=== PATIENT | female | born 1990 | race Caucasian/White ===

== ENCOUNTER 2016-10-16 00:24 | Inpatient (IN) | payer MEDICAID ==
[~2016-10-16] VITALS: Ht 147.3 cm; Wt 55.5 kg
[2016-10-16 00:30] VITALS: BP 111/58; PULSE 76; RESP 18
[2016-10-16] MEDS ORDERED: AMPICILLIN 2 GM/NS (PMX) 100 ML ONE (00:44)
[2016-10-16] MEDS ORDERED: LACTATED RINGER'S 1,000 ML IV SCH (00:48)
[2016-10-16] MEDS ORDERED: OXYTOCIN 30 UNITS/LR 500 ML IV SCH ×3 (01:00→01:45)
[2016-10-16] MEDS ORDERED: LIDOCAINE 1% (MPF) 30 ML INJ INJ PRN (01:00)
[2016-10-16] MEDS ORDERED: BUTORPHANOL 2 MG INJ IV PRN (01:00)
[2016-10-16] MEDS ORDERED: CARBOPROST 250 MCG INJ IM PRN ×2 (01:00→02:00)
[2016-10-16] MEDS ORDERED: AMPICILLIN 2 GM/NS (PMX) 100 ML IV ONE (01:00)
[2016-10-16] MEDS ORDERED: METHYLERGONOVINE 0.2 MG INJ IM PRN ×2 (01:00→02:00)
[2016-10-16] MEDS ORDERED: IBUPROFEN 600 MG TAB PO PRN (01:00)
[2016-10-16] MEDS ORDERED: OXYTOCIN 30 UNITS/LR 500 ML IV PRN ×2 (01:00→02:00)
[2016-10-16] MEDS ORDERED: LACTATED RINGER'S 1,000 ML IV PRN (01:00)
[2016-10-16] MEDS ORDERED: MISOPROSTOL 200 MCG TAB PR PRN ×2 (01:00→02:00)
--- NOTE | 2016-10-16 01:14 | HP ---
Date/Time of Note Date/Time of Note DATE: 10/16/16 TIME: 01:10 OB - History Hx of Present Chief Complaint: LOF : 4 Para: 3 Care: Good Care Obstetrical Complications: None Medical Complications: None Past Family/Social History * Past Medical, Surgical, Family and Obstetric Histories reviewed from chart. GBS Status: Positive OB Admission Exam Physical Exam HEENT: WNL Heart: Rhythm Normal Abdomen: WNL Extremities: Normal Cervical Dilatation: 4cm Effacement: 75% Station: -2 Membranes: Ruptured Heart Rate: 130's Accelerations: Accelerations Present Decelerations: No Decelerations Varibility: Moderate OB Assessment/Plan Reason for admission: active labor, group B positive strep, rupture of membranes Plan: Expectant Management Other plan: Admit to L&D. Ampicillin for GBS prophylaxis. Pitocin, epidural prn. RUTH WOMACK Oct 16, 2016 1:14 am
[2016-10-16 01:21] LABS: ADD SCAN DIFF NO
[2016-10-16 01:24] LABS: BASOPHILS % 0.2 % (0.0-2.0); EOSINOPHILS # 0.1 10^3/ul (0.0-0.5); EOSINOPHILS % 0.5 % (0.0-7.0); HEMATOCRIT 30.8 % (37.0-47.0); HEMOGLOBIN 10.9 g/dl (12.0-16.0); LYMPHOCYTES # 3.1 10^3/ul (0.8-2.9); LYMPHOCYTES % 32.5 % (15.0-51.0); MEAN CORPUSCULAR HGB CONC 35.4 g/dl (32.0-37.0); MEAN CORPUSCULAR VOLUME 87.5 fl (82.0-101.0); MEAN PLATELET VOLUME 10.2 fl (7.4-10.4); MONOCYTE # 0.5 10^3/ul (0.3-0.9); MONOCYTES % 5.2 % (0.0-11.0); NEUTROPHIL # 5.8 10^3/ul (1.6-7.5); PLATELET COUNT 216 10^3/UL (140-415); RED BLOOD COUNT 3.52 10^6/ul (4.20-5.40); RED CELL DISTRIBUTION WIDTH 12.3 % (11.5-14.5); WHITE BLOOD COUNT 9.5 10^3/ul (4.8-10.8)
[2016-10-16] MEDS ORDERED: LACTATED RINGER'S 1,000 ML IV* SCH (01:45)
--- NOTE | 2016-10-16 01:45 | LDN ---
Date/Time of Note Date/Time of Note DATE: 10/16/16 TIME: 01:43 Delivery Summary Placenta Delivered: Spontaneously Meconium: none Episiotomy: No Perineal laceration: 0 Anesthesia type: None Estimated blood loss: 200 Sponge & Needle done & correct: Yes All needle counts correct: Yes Any foreign bodies felt in the: No Problems: Infant Delivery Information Sex Infant Sex: female Apgars 1 Minute: 9 5 Minute: 9 Suctioning Nose & mouth suctioned at kapil: Yes Umbilical Cord Cord presentations: no nuchal cord Mother & Baby Disposition Disposition Mom & Baby to Maternity; Good: Yes RUTH WOMACK Oct 16, 2016 01:45
[2016-10-16 01:46] LABS: INR 0.88; PARTIAL THROMBOPLASTIN TIME 22.2 Sec (25.0-35.0); PROTIME 11.9 Sec (12.2-14.2); PT RATIO 0.9
[2016-10-16] MEDS ORDERED: WITCH HAZEL/GLYCERIN PAD PR PRN (02:00)
[2016-10-16] MEDS ORDERED: DIBUCAINE 1% 30 GM OINT PR PRN (02:00)
[2016-10-16] MEDS ORDERED: BENZOCAINE 20% 56 ML SPRAY TOP PRN (02:00)
[2016-10-16] MEDS ORDERED: ACETAMINOPHEN/CODEINE #3 TAB PO PRN ×2 (02:00)
[2016-10-16] MEDS ORDERED: LANOLIN 7 GM TUBE TOP PRN (02:00)
--- NOTE | 2016-10-16 03:16 | TRIAGE ---
OB Triage Datetime Report Generated by CPN: 10/16/2016 03:16 Datetime: 10/16/2016 01:52 Pain Assessment Pain Scale: 7 Pain Presence: Constant Pain Type: Cramping; Ache Pain Location: Abdomen; Back; Perineum Pain Goal: 0 Pain Relief Measures: Pain Medication Given; Comfort Measures Datetime: 10/16/2016 01:49 Stage of : Recovery Pain Assessment Pain Scale: 7 Pain Presence: Constant Pain Type: Cramping; Ache Pain Location: Abdomen; Back; Perineum Pain Goal: 0 Pain Relief Measures: Comfort Measures Datetime: 10/16/2016 01:37 Stage of : Recovery Temperature Route: Oral Pain Assessment Pain Scale: 10 Pain Presence: Constant Pain Type: Cramping; Ache Pain Location: Abdomen; Back; Perineum Pain Goal: 0 Pain Relief Measures: Comfort Measures Datetime: 10/16/2016 01:27 Vaginal Exam Dilatation (cms): 10.0 Datetime: 10/16/2016 01:20 Vaginal Exam Dilatation (cms): 9.5 Effacement (%): 100 Station: 0 Exam By: MG Datetime: 10/16/2016 01:15 Vaginal Exam Dilatation (cms): 9.0 Effacement (%): 90 Station: -1 Exam By: MG Datetime: 10/16/2016 01:13 Membrane Status: Ruptured Membranes Rupture Method: Spontaneous Amniotic Fluid Color: Clear Amniotic Fluid Amount: Moderate Datetime: 10/16/2016 01:12 Membrane Status: Intact Datetime: 10/16/2016 00:53 Pain Assessment Pain Scale: 9 Pain Presence: Intermittent Pain Type: Contraction; Pressure Pain Location: Abdomen Pain Goal: 0 Pain Relief Measures: Comfort Measures Pain Assessment Comments: Pt requests epidural Datetime: 10/16/2016 00:35 Time of Arrival: 10/16/2016 00:30 EGA: 38.6 Arrived By: Wheelchair Arrived From: Home Movement: Present Contractions: Irregular Time Contractions Began: 10/15/2016 22:00 Rupture of Membranes: Denies Vaginal Bleeding: None Vaginal Discharge: Denies Recent Sexual Intercouse: Denies Abdominal Trauma: Not Applicable Patient Complaints: Contractions Time Provider Notified: 10/16/2016 00:50 Provider Notified: Dr. 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 Datetime: 10/16/2016 00:30 Stage of : OB Triage Assessment Type: Triage Maternal Assessment Level of Consciousness: Fully Conscious DTR's/Clonus: DTRs 2+; No Clonus Headache: Denies Blurred Vision: No Respiratory Effort: Unlabored; Regular Rhythm; Equal Expansion Breath Sounds, Left: Clear and Equal Breath Sounds, Right: Clear and Equal Nausea/Vomiting: Denies RUQ Epigastric Pain: Denies Facial Edema: None Temperature Route: Axillary Fall Risk Assessment History of Falling: (0) No Secondary Diagnosis: (0) No Ambulatory Aid: (0) Bedrest/Nurse Assist IV Therapy: (0) No Gait: (0) Normal/Bedrest/Immobile Mental Status: (0) Oriented to Own Ability Fall Score: 0 Fall Risk Score Definition: No Risk: No action required Datetime: 10/16/2016 00:28 Membranes Ruptured Date/Time: 10/16/2016 01:13 Amniotic Fluid Odor: None Presentation 'A': Cephalic
[2016-10-16 03:40] VITALS: BP 117/59; PULSE 57; RESP 17
[2016-10-16 04:00] VITALS: BP 102/42; PULSE 58; RESP 17
[2016-10-16] MEDS: IBUPROFEN 600 MG TAB PO SCH ×3 (06:00→17:59)
[2016-10-16 08:00] VITALS: BP 98/42; PULSE 61; RESP 18
[2016-10-16] MEDS: AMPICILLIN 1 GM/NS (PMX) 50 ML IV SCH (09:00)
--- NOTE | 2016-10-16 09:52 | PN ---
Date/Time of Note Date/Time of Note DATE: 10/16/16 TIME: 09:50 OB Subjective Subjective Subjective Status post normal spontaneous vaginal delivery Patient is doing well and has no complaints OB Objective HEENT: WNL Heart: Rhythm Normal Lungs: Clear Abdomen: WNL (Uterus firm) OB Assessment/Plan Other Assessment: Status post Other plan: Continue with present management VIVI FREGOSO MD Oct 16, 2016 09:51
[2016-10-16 16:00] VITALS: BP 88/46; PULSE 59; RESP 18
[2016-10-16 20:00] VITALS: BP 103/55; PULSE 68; RESP 18
[2016-10-17] MEDS: IBUPROFEN 600 MG TAB PO SCH ×4 (01:20→17:21)
[2016-10-17 04:00] VITALS: BP 98/56; PULSE 61; RESP 18
[2016-10-17 08:00] VITALS: BP 89/57; PULSE 62; RESP 18
[2016-10-17 08:38] LABS: ADD SCAN DIFF NO
[2016-10-17 08:42] LABS: BASOPHILS % 0.1 % (0.0-2.0); EOSINOPHILS # 0.1 10^3/ul (0.0-0.5); EOSINOPHILS % 1.4 % (0.0-7.0); HEMATOCRIT 31.2 % (37.0-47.0); HEMOGLOBIN 10.6 g/dl (12.0-16.0); LYMPHOCYTES # 2.5 10^3/ul (0.8-2.9); LYMPHOCYTES % 29.2 % (15.0-51.0); MEAN CORPUSCULAR HEMOGLOBIN 30.2 pg (29.0-33.0); MEAN CORPUSCULAR VOLUME 88.9 fl (82.0-101.0); MEAN PLATELET VOLUME 10.3 fl (7.4-10.4); MONOCYTE # 0.3 10^3/ul (0.3-0.9); NEUTROPHIL # 5.5 10^3/ul (1.6-7.5); NEUTROPHILS % 64.9 % (39.0-77.0); PLATELET COUNT 210 10^3/UL (140-415); RED BLOOD COUNT 3.51 10^6/ul (4.20-5.40); RED CELL DISTRIBUTION WIDTH 12.7 % (11.5-14.5); WHITE BLOOD COUNT 8.5 10^3/ul (4.8-10.8)
--- NOTE | 2016-10-17 14:23 | DS ---
Date/Time of Note Date/Time of Note DATE: 10/17/16 TIME: 14:22 Obstetrical Discharge Record Final Diagnosis Final Diagnosis: Term delivered Vaginal Delivery Obstetrical Delivery: Spontaneous Complications Augmentation: No Induction: No Rupture of Membranes: No Condition on Discharge Physical Assessment Voiding: Yes Bowel Movement: Yes Breast: Soft, non-tender, Filling Fundus: Firm Abdomen and Incision: soft, not tender Calf Tenderness: No Patient Condition: Good ZANDRA OROPEZA MD Oct 17, 2016 14:23
[2016-10-18] MEDS ORDERED: MEASLES,MUMPS,RUBELLA VACCINE INJ SC* ONE (09:00)
[2016-10-18] MEDS ORDERED: VARICELLA VACCINE LIVE/PF 1,350 UNIT/0.5 ML ML SC* ONE (09:00)
[2016-10-18] MEDS ORDERED: DIPHTH/TET/ACEL PERTUSS (ADULT) 0.5 ML VIAL IM* ONE (09:00)
== END 2016-10-17 19:30 | disposition home or self-care (01) | DRG 775 ==
LOC: OBT 00:24 → L-D 00:25 → OBT 00:29 → L-D 00:30 → PP1 03:45
PROVIDERS: ADMIT Specialist; ATTEND Specialist
PROC: 10E0XZZ Delivery of Products of Conception, External Approach (ICD-10-PCS; principal; 2016-10-16)
PROC: 3E0234Z Introduction of Serum, Toxoid and Vaccine into Muscle, Percutaneous Approach (ICD-10-PCS; 2016-10-17)
DX: O99.824 Streptococcus B carrier state complicating childbirth (principal); Z3A.38 38 weeks gestation of pregnancy; Z23 Encounter for immunization; Z37.0 Single live birth
CPT/HCPCS: 85025; 85610; 85730; 86592; 86900; 86901; 87340; G0463; J0290; J2590; J7120

== ENCOUNTER 2017-04-11 05:37 | Day surgery (SDC) | payer MEDICAID ==
[2017-04-08 10:54] VITALS: BMI 24.9
[2017-04-11] VITALS (12 sets, daily range): BP systolic 95–112; BP diastolic 50–65; PULSE 62–90; RESP 12–21; Ht 147.3 cm; Wt 54.0 kg
[~2017-04-11] VITALS: Ht 147.3 cm; Wt 54.0 kg
[~2017-04-11 05:37] MED LIST: BUPIVACAINE 0.5%/EPI (SDV) 30 ML INJ INJ ONE
[2017-04-11] MEDS ORDERED: BUPIVACAINE 0.5%/EPI (SDV) 30 ML INJ ONE (07:06)
[2017-04-11] MEDS ORDERED: ROCURONIUM 50 MG INJ ONE (07:18)
[2017-04-11] MEDS ORDERED: PROPOFOL 20 ML ONE (07:18)
[2017-04-11] MEDS ORDERED: METOCLOPRAMIDE 10 MG INJ ONE (07:19)
[2017-04-11] MEDS ORDERED: MIDAZOLAM 1 MG/ML 2 ML INJ ONE (07:19)
[2017-04-11] MEDS ORDERED: ROPIVACAINE 0.5 % 30 ML VIAL ONE (07:19)
[2017-04-11] MEDS ORDERED: KETOROLAC 30 MG INJ ONE (07:19)
--- NOTE | 2017-04-11 07:28 | HP ---
Date/Time of Note Date/Time of Note DATE: 04/11/17 TIME: 07:26 Assessment/Plan VTE Prophylaxis VTE Prophylaxis Intervention: SCD's Lines/Catheters IV Catheter Type (from Nrs): Saline Lock HPI/ROS Admit Date/Time Admit Date/Time Hx of Present Illness patient is requesting permanent sterilization. Risks and benefits and indications and alternatives discussed patients. risks including but not limited to onfection, bleeding, damage to other organs such as intestines or bladder, blood transfusion and possibilty of failure of procedure discussed with patient. I also explained to her this procedures is permanent and not reversible. other reversible contraceptive methods also discussed with patient. patint also told that our plan is Laparoscopic BTL, but some times the surgery may be converted to Exploratory Laparotomy. Informed consent obtained Allergies: NKDA Medications: none ROS: Significant as above Review of Systems: Constitutional: Denies nausea, vomiting, Fever, Chills, weight loss Eyes: denies pain, discharge or redness Nose: denies pain or bleeding Respiratory: denies SOB, cough or wheezing Cardiovascular: denies chest pain, palpitations or lightheadedness Gastrointestinal: Denies nausea, vomiting, blood in stool Genitourinary: Denies hematuria, dysuria, or flank pain Musculoskeletal: Denies joint pain or swelling Skin: Denies rash, erythema or laceration Neuro: Denies confusion, seizure, headache or diziness Endocrine: Denies excessive urination or drinking Past Medical History: none Past Surgical History: none Physical Exam: Afebrile, VSS NAD A&O Heart: RRR Lung: CTA B Abdomen: Soft, Not tender Extremities: No edema Assessment: Patients desires permanent sterilization Plan: Laparoscopic BTL, Possible Exploratory Laparotomy. PMH/Family/Social Social History Smoking Status: Never smoker Exam/Review of Systems Vital Signs Vitals Vital Signs Date Time Temp Pulse Resp B/P Pulse Ox O2 Delivery O2 Flow Rate FiO2 04/11/17 06:37 97.8 63 18 104/52 99 Room Air ZANDRA OROPEZA MD Apr 11, 2017 07:28
[2017-04-11] MEDS ORDERED: CEFAZOLIN 1 GM INJ ONE (07:53)
[2017-04-11] MEDS ORDERED: DIPHENHYDRAMINE 50 MG INJ IV PRN (08:00)
[2017-04-11] MEDS ORDERED: HYDROmorphONE (0.2 MG/ML) 10ML SYG IV PRN ×3 (08:00)
[2017-04-11] MEDS ORDERED: ONDANSETRON 4 MG INJ IV PRN (08:00)
[2017-04-11] MEDS ORDERED: MEPERIDINE 25 MG INJ IV PRN (08:00)
[2017-04-11] MEDS ORDERED: OXYCODONE/ACETAMINOPHEN (5/325) TAB PO PRN ×2 (08:00)
[2017-04-11] MEDS ORDERED: NEOSTIGMINE 3 MG/3 ML SYRINGE ONE (08:03)
[2017-04-11] MEDS ORDERED: GLYCOPYRROLATE 0.4 MG INJ ONE (08:03)
--- NOTE | 2017-04-11 08:46 | OPR ---
Date/Time of Note Date/Time of Note DATE: 04/11/17 TIME: 08:44 Operative Report Free Text/Dictation DATE OF OPERATION: 04/11/2017 PREOPERATIVE DIAGNOSIS: Patient desires permanent sterilization. She declined Essure. She desires laparoscopic tubal fulguration. POSTOPERATIVE DIAGNOSIS: Patient desires permanent sterilization. She declined Essure. She desires laparoscopic tubal fulguration. OPERATION PERFORMED: Laparoscopic fulguration and transection of bilateral tubes. SURGEON: Darcie Cr MD ESTIMATED BLOOD LOSS: Minimal. COMPLICATIONS: None. FINDINGS: Normal tubes, ovaries bilaterally. Normal uterus. CONSENT: Please see my preop H and P consent in the office for the consent process. DESCRIPTION OF PROCEDURE: She was taken to operating room and general anesthesia was induced. She was prepped and draped in the usual sterile fashion in dorsal lithotomy position. Surgical time-out was done. Anterior lip of the cervix was grasped using a single-tooth tenaculum, and a HUMI was inserted in normal fashion. The tenaculum was removed. There was no bleeding from the cervix. The patient already had a Adam catheter as well. Gloves were changed. A 5 mm incision was developed inside the umbilicus. A blunt trocar was inserted in the normal fashion. Intraperitoneal position was confirmed using the laparoscope. Pneumoperitoneum was obtained. The patient was placed in Trendelenburg position. A second trocar was inserted under direct visualization of the laparoscope at the pubic hairline in the midline. A 5 cm mid ampullary region of the right tube was coagulated. Complete desiccation of the entire diameter of tube was visualized. The middle of the coagulated portion was cut. There was no bleeding. Same procedure was done on the contralateral side. All instruments removed under direct visualization of the laparoscope after pneumoperitoneum was released. There was no bleeding. Skin closed using 4-0 Monocryl. Then 10 mL 0.25% Marcaine with epinephrine was injected at the incision sites. HUMI was removed. There was no bleeding from the vagina. Patient tolerated the procedure well. Procedure Date: Apr 11, 2017 Preoperative Diagnosis Patient desires permanent sterilization. She declined Essure. She desires laparoscopic tubal fulguration. Postoperative Diagnosis Patient desires permanent sterilization. She declined Essure. She desires laparoscopic tubal fulguration. Surgeon see signature line Cross Tie Tram Loader none Anesthesia Type: general Estimated Blood Loss: minimal Transfusion none Specimen none Grafts/Implants none Tubes/Drains none Complications none Pt Condition Post Procedure: stable Disposition: PACU Procedure Description see above DARCIE CR MD Apr 11, 2017 08:46
== END 2017-04-11 10:11 | disposition home or self-care (01) ==
LOC: SDS 05:37
PROVIDERS: ATTEND Specialist
DX: Z30.2 Encounter for sterilization (principal)
CPT/HCPCS: 58670; J0690; J1885; J2175; J2250; J2405; J2710; J2765; J2795; Z7512; Z7610; J1170